=== PATIENT | male | born 1960 | race African-American/Black ===

== ENCOUNTER 2019-02-20 08:48 | Inpatient (IN) | payer MEDICARE, MEDICAID ==
[2019-02-20] VITALS (12 sets, daily range): BP systolic 103–141; BP diastolic 61–79
[~2019-02-20] VITALS: Ht 175.3 cm; Wt 71.7 kg
[2019-02-20] MEDS ORDERED: SODIUM CHLORIDE 0.9% 500 ML IV ONE (09:07)
[2019-02-20 09:33] LABS: HEMATOCRIT. 37.5 % (42.0-52.0); HEMOGLOBIN. 11.9 g/dL (14.0-18.0); MEAN CORPUSCULAR HEMOGLOBIN 28.3 pg (28.0-32.0); MEAN PLATELET VOLUME 8.8 fl (7.4-10.4); PLATELET 145 x1000/uL (130-400); RED BLOOD CELL COUNT 4.21 mill/uL (4.7-6.1); RED CELL DISTRIBUTION WIDTH 18.7 % (11.6-14.6)
[2019-02-20 09:38] LABS: CHLORIDE 102 mEq/L (98-107); INR 1.3; PROTHROMBIN TIME 12.7 sec (9.1-11.1)
[2019-02-20] MEDS ORDERED: SODIUM CHLORIDE 0.9% 1,000 ML IV ONE ×2 (09:53→15:00)
[2019-02-20 10:00] LABS: PLATELET ESTIMATE NORMAL
[2019-02-20] MEDS ORDERED: SODIUM BICARBONATE 8.4% 1 MEQ/ML 50ML SYR IV ONE (10:00)
[2019-02-20] MEDS ORDERED: CALCIUM CHLORIDE 1GM/10ML SYR IV ONE (10:00)
[2019-02-20] MEDS ORDERED: INSULIN REGULAR (HUMULIN R) 300UNITS/3ML IV ONE (10:00)
[2019-02-20] MEDS ORDERED: DEXTROSE 50% WATER 50ML SYRINGE IV ONE (10:00)
[2019-02-20] MEDS ORDERED: PIPERACILLIN/TAZ 3.375G PREMIX 50 ML IV ONE (10:00)
[2019-02-20] MEDS ORDERED: VANCOMYCIN 1 G PREMIX 200 ML IV ONE (10:00)
[2019-02-20] MEDS ORDERED: HYDROCODONE/ACETAMINOPHEN 5/325MG TABLET PO PRN (11:00)
[2019-02-20] MEDS ORDERED: IPRATROPIUM/ALBUTEROL 0.5-3(2.5)MG/3ML NEB INH PRN (11:00)
[2019-02-20] MEDS ORDERED: GUAIFENESIN 200MG/10ML SUGAR FREE UDC PO PRN (11:00)
[2019-02-20] MEDS ORDERED: DOCUSATE SODIUM 100MG CAPSULE PO PRN (11:00)
[2019-02-20] MEDS ORDERED: PIPERACILLIN/TAZ 2.25G PREMIX 50 ML IV SCH (11:00)
[2019-02-20] MEDS ORDERED: ACETAMINOPHEN 650MG SUPP PR PRN (11:00)
[2019-02-20] MEDS ORDERED: LORAZEPAM 0.5MG TABLET PO PRN (11:00)
[2019-02-20] MEDS ORDERED: CLONIDINE 0.1MG TABLET PO PRN (11:00)
[2019-02-20 12:42] LABS: BG DEOXYHEMOGLOBIN 4.1 % (0.0-5.0); BG FRACTION INSPIRED OXYGEN 21; BG HCO3 ACT 17.7 mmol/L (22.0-26.0); BG METHEMOGLOBIN 0.1 % (0.0-1.5); BG OXYGEN SATURATION 95.9 % (92.0-98.5); BG OXYHEMOGLOBIN 94.8 % (94.0-97.0); BG PCO2 29.4 mmHg (35.0-45.0); BG PH 7.398 (7.350-7.450); BG PO2 89.7 mmHg (75.0-100.0); BG SAMPLE SITE RIGHT FEMORAL; BG TOTAL HEMOGLOBIN 11.7 g/dL (12.0-18.0); BG VENT MODE ROOM AIR
[2019-02-20] MEDS ORDERED: SODIUM BICARBONATE 4% (2.4MEQ) 5ML VIAL IV ONE (12:57)
[2019-02-20] MEDS ORDERED: LIDOCAINE HCL 1% 20ML VIAL (Pyxis) INJ ONE (12:57)
[2019-02-20] MEDS ORDERED: FENTANYL CITRATE/PF 50MCG/ML 2ML VIAL IV ONE (13:15)
[2019-02-20] MEDS ORDERED: FENTANYL CITRATE/PF 50MCG/ML 2ML VIAL ONE (13:24)
[2019-02-20] MEDS: DILTIAZEM HCL 30MG TABLET PO SCH ×2 (14:00→22:37)
[2019-02-20] MEDS ORDERED: DILTIAZEM HCL 5MG/ML 5ML VIAL IV ONE (14:00)
[2019-02-20] MEDS ORDERED: DEXTROSE 50% WATER 50ML SYRINGE IV PRN (14:15)
[2019-02-20] MEDS ORDERED: SODIUM CHLORIDE 0.9% 1,000 ML IV SCH (14:15)
[2019-02-20] MEDS ORDERED: TOBRAMYCIN 80 MG PREMIX 100 ML IV SCH ×2 (14:45→18:30)
[2019-02-20] MEDS ORDERED: DILTIAZEM HCL 5MG/ML 5ML VIAL IV NR (17:44)
[2019-02-20] MEDS: BLOOD SUGAR DIAGNOSTIC STRIP TEST SCH ×3 (17:52→21:00)
[2019-02-20] MEDS: INSULIN LISPRO 100 UNITS/ML SUBCUT SCH ×2 (18:00→21:00)
[2019-02-20] MEDS: PIPERACILLIN/TAZ 2.25G PREMIX 50 ML IV SCH (18:32)
[2019-02-20] MEDS: HEPARIN 5000 UNITS/ML VIAL SUBCUT SCH (22:38)
[2019-02-20] MEDS: ACETAMINOPHEN 325MG TABLET PO PRN (22:45)
[2019-02-21] VITALS (12 sets, daily range): BP systolic 78–118; BP diastolic 42–68
[2019-02-21] MEDS ORDERED: SODIUM CHLORIDE 0.9% 250 ML IV ONE ×2 (02:45→13:15)
[2019-02-21] MEDS: PIPERACILLIN/TAZ 2.25G PREMIX 50 ML IV SCH ×3 (02:59→17:58)
[2019-02-21] MEDS: DILTIAZEM HCL 30MG TABLET PO SCH ×3 (06:00→22:00)
[2019-02-21] MEDS: ONDANSETRON HCL 4MG/2ML INJ IV PRN ×3 (06:15→18:50)
[2019-02-21 06:20] LABS: CHLORIDE 105 mEq/L (98-107)
[2019-02-21 06:21] LABS: BASOPHILS % 0.9 % (0.0-2.0); HEMATOCRIT. 34.1 % (42.0-52.0); HEMOGLOBIN. 10.8 g/dL (14.0-18.0); LYMPHOCYTES % 8.2 % (20.0-50.0); MEAN CORPUSCULAR HEMOGLOBIN 28.2 pg (28.0-32.0); MEAN CORPUSCULAR VOLUME 88.6 fL (80.0-94.0); MEAN PLATELET VOLUME 9.5 fl (7.4-10.4); MONOCYTES % 3.5 % (2.0-8.0); NEUTROPHILS % 87.4 % (40.0-76.0); PLATELET 105 x1000/uL (130-400); RED BLOOD CELL COUNT 3.84 mill/uL (4.7-6.1); RED CELL DISTRIBUTION WIDTH 18.5 % (11.6-14.6)
[2019-02-21 06:30] LABS: LDL CHOLESTEROL 65 mg/dL (5-100)
[2019-02-21 06:31] LABS: HDL CHOLESTEROL 32 mg/dL (40-59); T4 FREE 0.91 ng/dL (0.76-1.46)
[2019-02-21] MEDS: BLOOD SUGAR DIAGNOSTIC STRIP TEST SCH ×4 (07:41→21:00)
[2019-02-21] MEDS: INSULIN LISPRO 100 UNITS/ML SUBCUT SCH ×4 (08:00→21:00)
[2019-02-21] MEDS: ACETAMINOPHEN 325MG TABLET PO PRN ×3 (08:11→23:59)
[2019-02-21] MEDS: HEPARIN 5000 UNITS/ML VIAL SUBCUT SCH ×2 (09:00→21:00)
[2019-02-21] MEDS ORDERED: SODIUM CHLORIDE 0.9% 250 ML IV SCH ×2 (11:30)
[2019-02-21] MEDS ORDERED: SODIUM POLYSTYRENE SULFONATE 15 G/60 ML BOT PO SCH (12:00)
[2019-02-21] MEDS ORDERED: VANCOMYCIN 500 MG PREMIX 100 ML IV NR (12:00)
[2019-02-21] MEDS ORDERED: SODIUM CHLORIDE 0.9% 500 ML IV SCH (13:15)
[2019-02-21] MEDS ORDERED: *TOBRAMYCIN PER PHARMACY XX SCH (14:00)
[2019-02-21] MEDS ORDERED: TOBRAMYCIN SULFATE 140 MG in SODIUM CHLORIDE 0.9% 100 ML IV NR (16:00)
[2019-02-21] MEDS: MIDODRINE HCL 5MG TABLET PO SCH (19:17)
[2019-02-21] MEDS: METRONIDAZOLE 500MG TABLET PO SCH (21:35)
[2019-02-22] VITALS (12 sets, daily range): BP systolic 93–130; BP diastolic 52–79
[2019-02-22] MEDS: PIPERACILLIN/TAZ 2.25G PREMIX 50 ML IV SCH ×3 (01:30→17:21)
[2019-02-22] MEDS: DILTIAZEM HCL 30MG TABLET PO SCH ×3 (06:00→21:49)
[2019-02-22 06:09] LABS: BASOPHILS % 1.2 % (0.0-2.0); EOSINOPHILS % 0.4 % (0.0-5.0); HEMATOCRIT. 30.7 % (42.0-52.0); HEMOGLOBIN. 9.8 g/dL (14.0-18.0); LYMPHOCYTES % 16.4 % (20.0-50.0); MEAN CORPUSCULAR HEMOGLOBIN 28.2 pg (28.0-32.0); MEAN CORPUSCULAR VOLUME 88.1 fL (80.0-94.0); MEAN PLATELET VOLUME 9.9 fl (7.4-10.4); PLATELET 83 x1000/uL (130-400); RED BLOOD CELL COUNT 3.48 mill/uL (4.7-6.1); RED CELL DISTRIBUTION WIDTH 18.6 % (11.6-14.6)
[2019-02-22 06:24] LABS: CHLORIDE 105 mEq/L (98-107)
[2019-02-22 06:33] LABS: CREATINE KINASE 135 IU/L (39-308)
[2019-02-22 06:36] LABS: CREATINE KINASE MB FRACTION 1.4 ng/mL (0.5-3.6)
[2019-02-22] MEDS: INSULIN LISPRO 100 UNITS/ML SUBCUT SCH ×4 (08:00→21:00)
[2019-02-22] MEDS: BLOOD SUGAR DIAGNOSTIC STRIP TEST SCH ×4 (08:28→21:00)
[2019-02-22] MEDS: HEPARIN 5000 UNITS/ML VIAL SUBCUT SCH (09:00)
[2019-02-22] MEDS: METRONIDAZOLE 500MG TABLET PO SCH ×3 (09:00→21:49)
[2019-02-22] MEDS: ONDANSETRON HCL 4MG/2ML INJ IV PRN ×2 (09:32→21:46)
[2019-02-22] MEDS: MIDODRINE HCL 5MG TABLET PO SCH ×3 (09:33→17:00)
[2019-02-22] MEDS ORDERED: LIDOCAINE HCL 1% 20ML VIAL (Pyxis) INJ ONE (12:47)
[2019-02-22] MEDS ORDERED: TOBRAMYCIN SULFATE 80 MG in SODIUM CHLORIDE 0.9% 100 ML IV SCH (16:00)
[2019-02-22] MEDS: MAGNESIUM/ALUMINUM HYDROXIDE/SIMETHICONE 30ML UDC PO PRN (22:04)
[2019-02-23] VITALS (12 sets, daily range): BP systolic 100–141; BP diastolic 57–92
[2019-02-23] MEDS: PIPERACILLIN/TAZ 2.25G PREMIX 50 ML IV SCH ×2 (03:43→09:39)
[2019-02-23 06:00] LABS: HEMATOCRIT 31.7 % (42.0-52.0); MEAN CORPUSCULAR VOLUME 88.6 fL (80.0-94.0); PLATELET 85 x1000/uL (130-400); RED BLOOD CELL COUNT 3.58 mill/uL (4.7-6.1); RED CELL DISTRIBUTION WIDTH 19.1 % (11.6-14.6)
[2019-02-23] MEDS: DILTIAZEM HCL 30MG TABLET PO SCH ×3 (06:00→22:00)
[2019-02-23] MEDS: INSULIN LISPRO 100 UNITS/ML SUBCUT SCH ×4 (08:00→21:00)
[2019-02-23] MEDS: BLOOD SUGAR DIAGNOSTIC STRIP TEST SCH ×4 (08:00→21:00)
[2019-02-23] MEDS ORDERED: TOBRAMYCIN 80 MG PREMIX 100 ML IV SCH (09:00)
[2019-02-23] MEDS: METRONIDAZOLE 500MG TABLET PO SCH ×2 (09:27→22:04)
[2019-02-23] MEDS: MIDODRINE HCL 5MG TABLET PO SCH ×2 (13:36→17:00)
[2019-02-23] MEDS: ONDANSETRON HCL 4MG/2ML INJ IV PRN (13:45)
[2019-02-23] MEDS: AMPICILLIN 1,000 MG in SODIUM CHLORIDE 0.9% 50 ML IV SCH (13:54)
[2019-02-23] MEDS ORDERED: CALCIUM CARBONATE 500MG TABLET CHEW PO PRN (18:45)
[2019-02-23] MEDS: DIPHENHYDRAMINE 50MG/ML VIAL IV PRN (22:03)
[2019-02-23] MEDS: MAGNESIUM/ALUMINUM HYDROXIDE/SIMETHICONE 30ML UDC PO PRN (22:03)
[2019-02-24] VITALS (8 sets, daily range): BP systolic 100–169; BP diastolic 61–92
[2019-02-24] MEDS: AMPICILLIN 1,000 MG in SODIUM CHLORIDE 0.9% 50 ML IV SCH ×2 (02:00→13:45)
[2019-02-24] MEDS: DILTIAZEM HCL 30MG TABLET PO SCH ×3 (05:04→21:51)
[2019-02-24] MEDS: BLOOD SUGAR DIAGNOSTIC STRIP TEST SCH ×4 (07:30→20:50)
[2019-02-24] MEDS: INSULIN LISPRO 100 UNITS/ML SUBCUT SCH ×4 (08:00→20:50)
[2019-02-24] MEDS: METRONIDAZOLE 500MG TABLET PO SCH ×2 (08:27→20:50)
[2019-02-24] MEDS: MIDODRINE HCL 5MG TABLET PO SCH ×3 (09:00→17:00)
[2019-02-24 15:33] LABS: HEMATOCRIT 34.6 % (42.0-52.0); HEMOGLOBIN 10.8 g/dL (14.0-18.0); MEAN CORPUSCULAR HEMOGLOBIN 27.9 pg (28.0-32.0); MEAN CORPUSCULAR VOLUME 89.5 fL (80.0-94.0); PLATELET 101 x1000/uL (130-400); RED BLOOD CELL COUNT 3.86 mill/uL (4.7-6.1); RED CELL DISTRIBUTION WIDTH 19.6 % (11.6-14.6)
[2019-02-24] MEDS: DIPHENHYDRAMINE 50MG/ML VIAL IV PRN (23:58)
[2019-02-25] VITALS (19 sets, daily range): BP systolic 138–161; BP diastolic 80–105
[2019-02-25] MEDS: AMPICILLIN 1,000 MG in SODIUM CHLORIDE 0.9% 50 ML IV SCH ×3 (02:00→13:33)
[2019-02-25] MEDS: DILTIAZEM HCL 30MG TABLET PO SCH ×3 (05:44→21:36)
[2019-02-25] MEDS: INSULIN LISPRO 100 UNITS/ML SUBCUT SCH ×4 (05:45→21:00)
[2019-02-25] MEDS: BLOOD SUGAR DIAGNOSTIC STRIP TEST SCH ×4 (05:45→21:00)
[2019-02-25 06:21] LABS: HEMATOCRIT 32.9 % (42.0-52.0); HEMOGLOBIN 10.4 g/dL (14.0-18.0); MEAN CORPUSCULAR HEMOGLOBIN 27.9 pg (28.0-32.0); MEAN CORPUSCULAR VOLUME 88.6 fL (80.0-94.0); PLATELET 102 x1000/uL (130-400); RED BLOOD CELL COUNT 3.71 mill/uL (4.7-6.1); RED CELL DISTRIBUTION WIDTH 19.3 % (11.6-14.6)
[2019-02-25 06:25] LABS: INR 1.1; PROTHROMBIN TIME 11.3 sec (9.1-11.1)
[2019-02-25] MEDS ORDERED: SODIUM BICARBONATE 4% (2.4MEQ) 5ML VIAL IV ONE (08:38)
[2019-02-25] MEDS ORDERED: LIDOCAINE HCL 1% 20ML VIAL (Pyxis) INJ ONE (08:38)
[2019-02-25] MEDS: MIDODRINE HCL 5MG TABLET PO SCH ×3 (09:00→17:00)
[2019-02-25] MEDS ORDERED: FENTANYL CITRATE/PF 50MCG/ML 2ML VIAL ONE (09:20)
[2019-02-25] MEDS ORDERED: IOHEXOL-300 50 ML BOTTLE IV ONE (09:33)
[2019-02-25] MEDS ORDERED: FENTANYL CITRATE/PF 50MCG/ML 2ML VIAL IV ONE (09:45)
[2019-02-25] MEDS: METRONIDAZOLE 500MG TABLET PO SCH ×2 (11:13→21:35)
[2019-02-26] VITALS (7 sets, daily range): BP systolic 123–148; BP diastolic 73–89
[2019-02-26] MEDS ORDERED: HEPARIN SODIUM 1,000 UNIT/1ML VIAL IV SCH (02:40)
[2019-02-26] MEDS ORDERED: HETASTARCH/NORMAL SALINE 500 ML PLAST..BAG IV SCH (03:00)
[2019-02-26] MEDS: DILTIAZEM HCL 30MG TABLET PO SCH ×2 (06:00→14:00)
[2019-02-26] MEDS: BLOOD SUGAR DIAGNOSTIC STRIP TEST SCH ×4 (07:06→17:20)
[2019-02-26] MEDS: INSULIN LISPRO 100 UNITS/ML SUBCUT SCH ×3 (07:50→17:50)
[2019-02-26] MEDS: METRONIDAZOLE 500MG TABLET PO SCH (09:00)
[2019-02-26] MEDS: MIDODRINE HCL 5MG TABLET PO SCH ×2 (09:00→13:00)
[2019-02-26] MEDS: AMPICILLIN 1,000 MG in SODIUM CHLORIDE 0.9% 50 ML IV SCH (09:46)
== END 2019-02-26 21:20 | disposition home or self-care (01) | DRG 314 ==
LOC: ER 08:48 → 5EST 10:16 → EDBEDREQ 10:20 → ENRESERV 16:20 → 6WST 02-24 11:47
PROVIDERS: ADMIT Internal Medicine; ATTEND Internal Medicine
PROC: 5A1D70Z Performance of Urinary Filtration, Intermittent, Less than 6 Hours Per Day (ICD-10-PCS; 2019-02-20)
PROC: 02PYX3Z Removal of Infusion Device from Great Vessel, External Approach (ICD-10-PCS; 2019-02-20)
PROC: 06H033Z Insertion of Infusion Device into Inferior Vena Cava, Percutaneous Approach (ICD-10-PCS; 2019-02-20)
PROC: B5191ZA Fluoroscopy of Inferior Vena Cava using Low Osmolar Contrast, Guidance (ICD-10-PCS; 2019-02-20)
PROC: 5A1D70Z Performance of Urinary Filtration, Intermittent, Less than 6 Hours Per Day (ICD-10-PCS; principal; 2019-02-21)
PROC: 5A1D70Z Performance of Urinary Filtration, Intermittent, Less than 6 Hours Per Day (ICD-10-PCS; 2019-02-25)
PROC: 0JH63XZ Insertion of Tunneled Vascular Access Device into Chest Subcutaneous Tissue and Fascia, Percutaneous Approach (ICD-10-PCS; 2019-02-25)
PROC: 02H633Z Insertion of Infusion Device into Right Atrium, Percutaneous Approach (ICD-10-PCS; 2019-02-25)
PROC: B244ZZZ Ultrasonography of Right Heart (ICD-10-PCS; 2019-02-25)
DX: T82.7XXA Infection and inflammatory reaction due to other cardiac and vascular devices, implants and grafts, initial encounter (principal); A41.59 Other Gram-negative sepsis; R65.20 Severe sepsis without septic shock; I50.33 Acute on chronic diastolic (congestive) heart failure; N18.6 End stage renal disease; T82.41XA Breakdown (mechanical) of vascular dialysis catheter, initial encounter; I69.351 Hemiplegia and hemiparesis following cerebral infarction affecting right dominant side; E87.2 Acidosis; M86.9 Osteomyelitis, unspecified; I13.2 Hypertensive heart and chronic kidney disease with heart failure and with stage 5 chronic kidney disease, or end stage renal disease; E11.40 Type 2 diabetes mellitus with diabetic neuropathy, unspecified; E11.21 Type 2 diabetes mellitus with diabetic nephropathy; E11.319 Type 2 diabetes mellitus with unspecified diabetic retinopathy without macular edema; E11.621 Type 2 diabetes mellitus with foot ulcer; E87.5 Hyperkalemia; I27.20 Pulmonary hypertension, unspecified; I08.1 Rheumatic disorders of both mitral and tricuspid valves; D64.9 Anemia, unspecified; D69.6 Thrombocytopenia, unspecified; E11.22 Type 2 diabetes mellitus with diabetic chronic kidney disease; E11.51 Type 2 diabetes mellitus with diabetic peripheral angiopathy without gangrene; E11.69 Type 2 diabetes mellitus with other specified complication; L97.529 Non-pressure chronic ulcer of other part of left foot with unspecified severity; R79.1 Abnormal coagulation profile; Y71.2 Prosthetic and other implants, materials and accessory cardiovascular devices associated with adverse incidents; Y84.8 Other medical procedures as the cause of abnormal reaction of the patient, or of later complication, without mention of misadventure at the time of the procedure; Z89.511 Acquired absence of right leg below knee; Z89.512 Acquired absence of left leg below knee; Z99.2 Dependence on renal dialysis
CPT/HCPCS: 36415; 36558; 36569; 36589; 36600; 71045; 74176; 75825; 76937; 77001; 78582; 80048; 80061; 80202; 82270; 82375; 82550; 82553; 82805; 82962; 83036; 83605; 83735; 83880; 84132; 84145; 84439; 84443; 84484; 85027; 85379; 86022; 87015; 87045; 87077; 87186; 87427; 87449; 87804; 89055; 93005; 93306; 93970; 96365; 96366; 96375; 97116; 97162; 99152; 99153; 99291; A6261; A9558; C1725; C1750; C1769; C1893; J0290; J1200; J1642; J1644; J1815; J2405; J2543; J3010; J3260; J3370; J3490; J7030; J7050; Q9967; G0500

== ENCOUNTER → 2019-05-28 | Outpatient (CLI) | payer MEDICARE, MEDICAID | END | disposition home or self-care (01) | LOC: CT 13:19 | PROVIDERS: ATTEND Nurse Practitioner Family | DX: I12.0 Hypertensive chronic kidney disease with stage 5 chronic kidney disease or end stage renal disease (principal); E11.22 Type 2 diabetes mellitus with diabetic chronic kidney disease; N18.6 End stage renal disease | CPT/HCPCS: 74176 ==

== ENCOUNTER 2022-07-06 07:42 | Inpatient (IN) | payer MEDICARE, MEDICAID ==
[~2022-07-06] VITALS: Ht 175.3 cm; Wt 68.5 kg
[2022-07-06] MEDS ORDERED: SODIUM CHLORIDE 0.9% 1000ML BAG (SEPSIS BOLUS) IV ONE (08:00)
[2022-07-06 09:25] LABS: BASOPHILS % 0.7 % (0.0-2.0); EOSINOPHILS % 4.7 % (0.0-5.0); HEMATOCRIT. 49.3 % (42.0-52.0); HEMOGLOBIN. 16.7 g/dL (14.0-18.0); LYMPHOCYTES % 25.8 % (20.0-50.0); MEAN CORPUSCULAR HEMOGLOBIN 29.1 pg (28.0-32.0); MEAN CORPUSCULAR VOLUME 85.9 fL (80.0-94.0); MEAN PLATELET VOLUME 9.4 fl (7.4-10.4); MONOCYTES % 11.4 % (2.0-8.0); NEUTROPHILS % 57.4 % (40.0-76.0); PLATELET 255 x1000/uL (130-400); RED BLOOD CELL COUNT 5.74 mill/uL (4.7-6.1); RED CELL DISTRIBUTION WIDTH 16.2 % (11.6-14.6)
[2022-07-06 09:33] LABS: CHLORIDE 94 mEq/L (98-107)
[2022-07-06] MEDS ORDERED: VANCOMYCIN 1G PREMIX 200 ML IV ONE (10:15)
[2022-07-06] MEDS ORDERED: PIPERACILLIN/TAZ 3.375G PREMIX 50 ML IV ONE (10:15)
[2022-07-06 10:31] LABS: INR 1.1; PROTHROMBIN TIME 11.9 sec (9.6-11.0)
[2022-07-06] MEDS ORDERED: ENOXAPARIN 40MG/0.4ML SYR SUBCUT SCH (16:00)
[2022-07-06] MEDS ORDERED: ACETAMINOPHEN 325MG TABLET PO PRN (16:00)
[2022-07-06] MEDS ORDERED: ONDANSETRON HCL 4MG/2ML INJ IV PRN (16:00)
[2022-07-06] MEDS: ENOXAPARIN 30MG/0.3ML SYR SUBCUT SCH (18:18)
[2022-07-06 20:35] VITALS: BP 81/54
[2022-07-06 21:10] VITALS: BP 107/54
[2022-07-06] MEDS ORDERED: IPRATROPIUM/ALBUTEROL 0.5-3(2.5)MG/3ML NEB HHN PRN (21:45)
[2022-07-06] MEDS ORDERED: DEXTROSE 50% WATER 50ML SYRINGE IV PRN (21:45)
[2022-07-06] MEDS: MIDODRINE HCL 5MG TABLET PO SCH (22:07)
[2022-07-06] MEDS ORDERED: CIPR250T4 PO (22:20)
[2022-07-06] MEDS ORDERED: MIDO10TA PO (22:20)
[2022-07-07 02:02] LABS: CREATINE KINASE 157 IU/L (39-308); CREATINE KINASE MB FRACTION 1.3 ng/mL (0.5-3.6)
[2022-07-07 04:00] VITALS: BP 96/20
[2022-07-07] MEDS: MIDODRINE HCL 5MG TABLET PO SCH ×3 (05:29→22:07)
[2022-07-07] MEDS: BLOOD SUGAR DIAGNOSTIC STRIP TEST SCH ×2 (07:40→12:14)
[2022-07-07 08:00] VITALS: BP 81/55
[2022-07-07] MEDS: INSULIN LISPRO 100 UNITS/ML SUBCUT SCH ×2 (08:10→12:14)
[2022-07-07] MEDS: PANTOPRAZOLE 40MG DR TABLET PO SCH (08:46)
[2022-07-07] MEDS: PIPERACILLIN/TAZOBACTAM 3.375 G in DEXTROSE 5% WATER 50 ML IV SCH ×2 (08:46→22:07)
[2022-07-07] MEDS: ASPIRIN 81MG TABLET PO SCH (08:46)
[2022-07-07] MEDS ORDERED: VANCOMYCIN 500MG PREMIX 100 ML IV SCH (11:00)
[2022-07-07 12:00] VITALS: BP 96/57
[2022-07-07 16:00] VITALS: BP 83/39
[2022-07-07] MEDS: ENOXAPARIN 30MG/0.3ML SYR SUBCUT SCH (17:46)
[2022-07-07 20:00] VITALS: BP 67/16
[2022-07-08] VITALS: BP 77/16
[2022-07-08 04:00] VITALS: BP 67/16
[2022-07-08] MEDS: PANTOPRAZOLE 40MG DR TABLET PO SCH (05:45)
[2022-07-08] MEDS: MIDODRINE HCL 5MG TABLET PO SCH ×3 (05:45→22:20)
[2022-07-08 08:00] VITALS: BP 85/50
[2022-07-08] MEDS: ASPIRIN 81MG TABLET PO SCH (11:22)
[2022-07-08] MEDS: PIPERACILLIN/TAZOBACTAM 3.375 G in DEXTROSE 5% WATER 50 ML IV SCH ×2 (11:22→20:23)
[2022-07-08 11:57] VITALS: BP 98/52
[2022-07-08 16:00] VITALS: BP_SYST 109; BP_SYST 90; BP_SYST 93; BP_DIAS 53; BP_DIAS 60; BP_DIAS 68
[2022-07-08] MEDS: ENOXAPARIN 30MG/0.3ML SYR SUBCUT SCH (18:00)
[2022-07-08 20:00] VITALS: BP 83/46
[2022-07-08] MEDS ORDERED: SODIUM CHLORIDE 0.9% 1,000 ML IV SCH (20:00)
[2022-07-09] VITALS: BP 86/46
[2022-07-09 04:00] VITALS: BP_SYST 78; BP_SYST 84; BP_SYST 86; BP_DIAS 43; BP_DIAS 51
[2022-07-09] MEDS: PANTOPRAZOLE 40MG DR TABLET PO SCH (05:49)
[2022-07-09] MEDS: MIDODRINE HCL 5MG TABLET PO SCH (05:50)
[2022-07-09 08:00] VITALS: BP 97/60
[2022-07-09] MEDS: PIPERACILLIN/TAZOBACTAM 3.375 G in DEXTROSE 5% WATER 50 ML IV SCH (09:00)
[2022-07-09] MEDS: ASPIRIN 81MG TABLET PO SCH (09:00)
[2022-07-09] MEDS ORDERED: FLUDROCORTISONE ACETATE 0.1MG TABLET PO SCH (10:45)
[2022-07-10] MEDS ORDERED: FAMOTIDINE 20MG TABLET PO SCH (09:00)
== END 2022-07-09 10:25 | disposition left against medical advice (07) | DRG 314 ==
LOC: ER 07:50 → EDBEDREQSVC 10:08 → EDBEDREQ 10:08 → EDBEDREQTM 10:08 → EDBEDREQ 13:13 → EDBEDREQTM 13:13 → ENRESERV 17:40 → 7WST 22:07
PROVIDERS: ADMIT Internal Medicine; ATTEND Internal Medicine
PROC: 5A1D70Z Performance of Urinary Filtration, Intermittent, Less than 6 Hours Per Day (ICD-10-PCS; principal; 2022-07-06)
DX: I95.9 Hypotension, unspecified (principal); N18.6 End stage renal disease; I13.2 Hypertensive heart and chronic kidney disease with heart failure and with stage 5 chronic kidney disease, or end stage renal disease; M86.9 Osteomyelitis, unspecified; I69.351 Hemiplegia and hemiparesis following cerebral infarction affecting right dominant side; I50.32 Chronic diastolic (congestive) heart failure; E11.22 Type 2 diabetes mellitus with diabetic chronic kidney disease; E11.21 Type 2 diabetes mellitus with diabetic nephropathy; I27.21 Secondary pulmonary arterial hypertension; E11.319 Type 2 diabetes mellitus with unspecified diabetic retinopathy without macular edema; E11.40 Type 2 diabetes mellitus with diabetic neuropathy, unspecified; E11.621 Type 2 diabetes mellitus with foot ulcer; L97.529 Non-pressure chronic ulcer of other part of left foot with unspecified severity; G90.8 Other disorders of autonomic nervous system; Z89.511 Acquired absence of right leg below knee; Z53.29 Procedure and treatment not carried out because of patient's decision for other reasons; Z99.2 Dependence on renal dialysis
CPT/HCPCS: 36415; 80053; 80202; 82550; 82553; 82962; 83036; 83605; 84145; 84484; 85025; 93005; 99285; J1650; J1815; J2405; J2543; J3370; J7030; J7060

== ENCOUNTER 2024-12-11 10:02 | Emergency (ER) | payer MEDICARE, MEDICAID ==
[~2024-12-11] VITALS: Ht 177.8 cm; Wt 68.0 kg
[~2024-12-11 10:02] MED LIST: MIDO5TAB4 PO
[2024-12-11 10:05] VITALS: O2SAT 100
[2024-12-11 10:40] LABS: BASOPHILS % 0.7 % (0.0-2.0); EOSINOPHILS % 3.2 % (0.0-5.0); HEMATOCRIT. 41.1 % (42.0-52.0); HEMOGLOBIN. 12.8 g/dL (14.0-18.0); MEAN CORPUSCULAR HEMOGLOBIN 25.1 pg (28.0-32.0); MEAN CORPUSCULAR HGB CONC 31.2 g/dL (31.0-37.0); MEAN CORPUSCULAR VOLUME 80.5 fL (80.0-94.0); MEAN PLATELET VOLUME 9.5 fl (7.4-10.4); NEUTROPHILS % 36.1 % (40.0-76.0); PLATELET 156 x1000/uL (130-400); RED BLOOD CELL COUNT 5.11 mill/uL (4.7-6.1); RED CELL DISTRIBUTION WIDTH 17.3 % (11.6-14.6); WHITE BLOOD COUNT 5.7 x1000/uL (4.5-11.0)
[2024-12-11 10:59] LABS: CHLORIDE 100 mEq/L (98-107); POTASSIUM 3.5 mEq/L (3.5-5.1); SODIUM 140 mEq/L (136-145)
[2024-12-11 11:00] LABS: CARBON DIOXIDE 30 mEq/L (21-32)
[2024-12-11 11:01] LABS: CALCIUM 9.7 mg/dL (8.7-10.4)
[2024-12-11 11:05] LABS: CREATININE 4.9 mg/dL (0.6-1.3); GLUCOSE 152 mg/dL (70-105); UREA NITROGEN BLOOD 21 mg/dL (9-23)
[2024-12-11 11:06] LABS: TROPONIN I HIGH SENSITIVITY 16 ng/L (3.0-53)
[2024-12-11] MEDS ORDERED: VANCOMYCIN 1G PREMIX 200 ML IV SCH (22:00)
[2024-12-11] MEDS ORDERED: HYDROCODONE/ACETAMINOPHEN 5/325MG TABLET PO PRN (22:00)
[2024-12-11] MEDS ORDERED: ACETAMINOPHEN 325MG TABLET PO PRN ×2 (22:00→23:45)
[2024-12-11] MEDS ORDERED: IPRATROPIUM/ALBUTEROL 0.5-3(2.5)MG/3ML NEB HHN PRN (22:00)
[2024-12-11] MEDS ORDERED: ONDANSETRON HCL 4MG/2ML INJ IV PRN ×2 (22:00→23:45)
[2024-12-11] MEDS ORDERED: ENOXAPARIN 40MG/0.4ML SYR SUBCUT SCH (22:00)
[2024-12-11] MEDS ORDERED: PIPERACILLIN/TAZOBACTAM 3.375 G in DEXTROSE 5% WATER 50 ML IV SCH (22:00)
[2024-12-11] MEDS: PIPERACILLIN/TAZO 3.375G/50ML 50 ML IV SCH (22:15)
[2024-12-11] MEDS: ENOXAPARIN 30MG/0.3ML SYR SUBCUT SCH (22:30)
[2024-12-11] MEDS: VANCOMYCIN 1.25GM PMX (XELLIA) 250 ML IV NR (22:42)
[2024-12-11] MEDS ORDERED: CLONIDINE 0.1MG TABLET PO PRN (23:45)
[2024-12-11] MEDS ORDERED: ZOLPIDEM TARTRATE 5MG TABLET PO PRN (23:45)
[2024-12-12 00:23] LABS: CREATINE KINASE MB FRACTION 5.3 ng/mL (0.5-3.6)
[2024-12-12 09:20] VITALS: BP 98/60; PULSE 84; RESP 14; TEMP 36.39180; O2SAT 100
== END 2024-12-12 08:09 | disposition admitted as inpatient to this hospital (09) ==
LOC: ER 10:18 → EDBEDREQTM 12:17 → EDBEDREQ 12:17 → ER 12-12 08:09
DX: J18.9 Pneumonia, unspecified organism (principal); T82.838A Hemorrhage due to vascular prosthetic devices, implants and grafts, initial encounter; I46.9 Cardiac arrest, cause unspecified; N18.6 End stage renal disease; E11.22 Type 2 diabetes mellitus with diabetic chronic kidney disease; Z99.2 Dependence on renal dialysis; Z89.511 Acquired absence of right leg below knee; Z98.890 Other specified postprocedural states
CPT/HCPCS: 99291; 70450; 80048; 82550; 82553; 83880; 85025; 84484; 84145; 71045; 93005; 36415; J2543; J1650; J3370